=== PATIENT | female | born 1970 | race Caucasian/White ===

== ENCOUNTER 2016-07-12 06:27 | Inpatient (IN) | payer MEDICAID ==
[~2016-07-12] VITALS: Ht 137.2 cm; Wt 64.0 kg
[2016-07-12 07:13] LABS: CALCIUM 8.6 mg/dL (8.5-10.1); CARBON DIOXIDE 22.4 mmol/L (21-32); CHLORIDE SERUM 105 mmol/L (98-107); CREATININE SERUM 0.8 mg/dL (0.6-1.0); GFR1 > 60 mL/min; GLUCOSE SERUM 107 mg/dL (74-106); POTASSIUM SERUM 3.8 mmol/L (3.5-5.1); SODIUM SERUM 139 mmol/L (136-145)
[2016-07-12 07:15] LABS: BASOPHIL % 0.7 % (0-2); PLATELET COUNT 302 x10^3mcL (130-400); RED CELL DISTRIBUTION WIDTH 13.3 % (11.5-14.5)
[2016-07-12 07:17] LABS: ALBUMIN 3.6 g/dL (3.4-5.0); ALKALINE PHOSPHATASE 112 U/L (46-116); ALT/SGPT 19 U/L (14-59); AST/SGOT 13 U/L (15-37); BILIRUBIN TOTAL 0.3 mg/dL (0.20-1.00); LIPASE 147 IU/L (73-393); TOTAL PROTEIN, SERUM 7.8 g/dL (6.4-8.2)
[2016-07-12] MEDS ORDERED: RANITIDINE HCL150 M1 PO (08:17)
[2016-07-12 09:01] LABS: CHOLESTEROL/HDL RATIO 4.6
[2016-07-12 09:07] LABS: T3 TOTAL 1.25 ng/mL
[2016-07-12 09:17] LABS: FREE T4 1.03 ng/dL (0.76-1.46); FREE THYROXINE INDEX 2.6 ug/dL (1.4-4.5); T4(THYROXINE) 8.3 ug/dL (4.7-13.3)
[2016-07-12 10:03] VITALS: BP 103/66
[2016-07-12 10:05] VITALS: BP 116/78
[2016-07-12 14:29] VITALS: BP 99/55
[2016-07-12 17:44] VITALS: BP 98/65
[2016-07-12 19:17] LABS: microscopic required? NO
[2016-07-12 19:56] LABS: urine erythrocyte NEGATIVE (NEGATIVE)
[2016-07-12 20:12] LABS: AMPHETAMINE QUAL UR NONE DETECTED (NEG <=1000)
[2016-07-12 22:31] VITALS: BP 84/52
[2016-07-13 05:37] VITALS: BP 102/64
[2016-07-13 08:12] LABS: CALCIUM 8.1 mg/dL (8.5-10.1); CHLORIDE SERUM 106 mmol/L (98-107); CREATININE SERUM 0.9 mg/dL (0.6-1.0); GFR1 > 60 mL/min; GLUCOSE SERUM 99 mg/dL (74-106); MAGNESIUM 1.9 mg/dL (1.8-2.4); PHOSPHOROUS 3.5 mg/dL (2.5-4.9); POTASSIUM SERUM 3.9 mmol/L (3.5-5.1); SODIUM SERUM 138 mmol/L (136-145)
[2016-07-13 08:15] LABS: BASOPHIL % 0.5 % (0-2); PLATELET COUNT 249 x10^3mcL (130-400); RED CELL DISTRIBUTION WIDTH 13.9 % (11.5-14.5)
[2016-07-13 09:09] VITALS: BP 100/59
[2016-07-13 13:50] VITALS: BP 114/75
[2016-07-13 22:32] VITALS: BP 96/64
[2016-07-14 06:32] VITALS: BP 102/62
[2016-07-14 07:13] LABS: CALCIUM 8.2 mg/dL (8.5-10.1); CARBON DIOXIDE 24.5 mmol/L (21-32); CHLORIDE SERUM 104 mmol/L (98-107); CREATININE SERUM 0.9 mg/dL (0.6-1.0); GFR1 > 60 mL/min; GLUCOSE SERUM 92 mg/dL (74-106); MAGNESIUM 1.9 mg/dL (1.8-2.4); PHOSPHOROUS 3.5 mg/dL (2.5-4.9); SODIUM SERUM 137 mmol/L (136-145)
[2016-07-14 07:17] LABS: BASOPHIL % 0.5 % (0-2); PLATELET COUNT 265 x10^3mcL (130-400); RED CELL DISTRIBUTION WIDTH 13.5 % (11.5-14.5)
[2016-07-14 08:53] VITALS: BP 101/59
[2016-07-14 15:38] LABS: BILIRUBIN DIRECT 0.07 mg/dL (0.0-0.2); BILIRUBIN TOTAL 0.3 mg/dL (0.20-1.00); TOTAL PROTEIN, SERUM 6.8 g/dL (6.4-8.2)
[2016-07-14 15:40] LABS: ALBUMIN 3.1 g/dL (3.4-5.0)
[2016-07-14 18:01] VITALS: BP 115/70
[2016-07-14 19:50] VITALS: BP 115/73
[2016-07-14 21:07] VITALS: Ht 137.2 cm; Wt 64.0 kg
[2016-07-15 06:11] VITALS: BP 100/64
[2016-07-15 06:30] LABS: ALKALINE PHOSPHATASE 72 U/L (46-116); ALT/SGPT 28 U/L (14-59); AST/SGOT 54 U/L (15-37); BILIRUBIN TOTAL 0.5 mg/dL (0.20-1.00); CALCIUM 8.4 mg/dL (8.5-10.1); CARBON DIOXIDE 22.5 mmol/L (21-32); CHLORIDE SERUM 106 mmol/L (98-107); CREATININE SERUM 0.7 mg/dL (0.6-1.0); GFR1 > 60 mL/min; GLUCOSE SERUM 112 mg/dL (74-106); POTASSIUM SERUM 3.5 mmol/L (3.5-5.1); SODIUM SERUM 137 mmol/L (136-145); TOTAL PROTEIN, SERUM 6.7 g/dL (6.4-8.2)
[2016-07-15 06:32] LABS: BASOPHIL % 0.2 % (0-2); PLATELET COUNT 258 x10^3mcL (130-400); RED CELL DISTRIBUTION WIDTH 13.2 % (11.5-14.5)
[2016-07-15 09:08] VITALS: BP 108/67
[2016-07-15 13:27] VITALS: BP 110/70
[2016-07-15 17:07] VITALS: BP 105/69
[2016-07-15 21:46] VITALS: BP 105/76
[2016-07-16 05:55] VITALS: BP 100/65
[2016-07-16 06:27] LABS: BASOPHIL % 0.4 % (0-2); PLATELET COUNT 224 x10^3mcL (130-400); RED CELL DISTRIBUTION WIDTH 13.6 % (11.5-14.5)
[2016-07-16 06:54] LABS: CALCIUM 8.1 mg/dL (8.5-10.1); CHLORIDE SERUM 107 mmol/L (98-107); CREATININE SERUM 0.8 mg/dL (0.6-1.0); GFR1 > 60 mL/min; GLUCOSE SERUM 92 mg/dL (74-106); MAGNESIUM 1.9 mg/dL (1.8-2.4); PHOSPHOROUS 3.1 mg/dL (2.5-4.9); POTASSIUM SERUM 3.9 mmol/L (3.5-5.1); SODIUM SERUM 139 mmol/L (136-145)
[2016-07-16 09:27] VITALS: BP 105/69
[2016-07-16] MEDS ORDERED: APAP/HYDROCODON1 T13 PO (10:25)
[2016-07-16] MEDS ORDERED: COL100 PO (10:30)
[2016-07-16] MEDS ORDERED: GAS RELIEF80 MG CH ×2 (10:30→10:39)
[2016-07-16 13:20] VITALS: BP 105/72
== END 2016-07-16 13:55 | disposition home or self-care (01) | DRG 263 ==
LOC: ED 06:27 → MU 08:01 → DU 08:01 → MU 07-15 16:59
PROVIDERS: Emergency Medicine; Family Medicine; Surgery; ADMIT Family Medicine
PROC: 8E0W4CZ Robotic Assisted Procedure of Trunk Region, Percutaneous Endoscopic Approach (ICD-10-PCS; 2016-07-14)
PROC: 0FT44ZZ Resection of Gallbladder, Percutaneous Endoscopic Approach (ICD-10-PCS; principal; 2016-07-14 12:00)
DX: K80.10 Calculus of gallbladder with chronic cholecystitis without obstruction (principal); E44.0 Moderate protein-calorie malnutrition; E78.1 Pure hyperglyceridemia; E78.5 Hyperlipidemia, unspecified; E66.9 Obesity, unspecified; Z68.34 Body mass index [BMI] 34.0-34.9, adult
CPT/HCPCS: 80307; 83880; 84439; 94150; J0295; J0330; J1644; J1885; J2175; J2250; J2405; J2704; J2710; J3010; J3490; J7030; J7120; Q0092; Q0162

== ENCOUNTER 2016-07-21 08:40 | Emergency (ER) | payer MEDICAID ==
[~2016-07-21 08:40] MED LIST: APAP/HYDROCODON1 T13 PO; COL100 PO; GAS RELIEF80 MG CH; RANITIDINE HCL150 M1 PO
[2016-07-21 11:13] VITALS: BP 106/72
== END 2016-07-21 11:13 | disposition home or self-care (01) ==
LOC: ED 08:40
DX: R42 Dizziness and giddiness (principal); R11.0 Nausea; Z90.49 Acquired absence of other specified parts of digestive tract

== ENCOUNTER 2017-09-26 20:41 | Emergency (ER) | payer MEDICAID ==
[~2017-09-26] VITALS: Ht 157.5 cm; Wt 66.2 kg
[2017-09-26 20:43] VITALS: Ht 157.5 cm; Wt 66.2 kg
[2017-09-26 22:45] VITALS: BP 120/78
== END 2017-09-26 22:45 | disposition home or self-care (01) ==
LOC: ED 20:41
DX: B34.9 Viral infection, unspecified (principal)
CPT/HCPCS: Q0092

== ENCOUNTER 2018-11-12 23:26 | Emergency (ER) | payer MEDICAID ==
[~2018-11-12] VITALS: Ht 160 cm; Wt 67.1 kg
[2018-11-12 23:28] VITALS: Ht 160 cm; Wt 67.1 kg
[2018-11-13 00:04] LABS: BASOPHIL % 0.6 % (0-2); PLATELET COUNT 278 x10^3mcL (130-400); RED CELL DISTRIBUTION WIDTH 12.9 % (11.5-14.5)
[2018-11-13 00:06] LABS: CALCIUM 8.5 mg/dL (8.5-10.1); CARBON DIOXIDE 23.7 mmol/L (21-32); CHLORIDE SERUM 106 mmol/L (98-107); CREATININE SERUM 0.8 mg/dL (0.6-1.0); GFR1 > 60 mL/min; GLUCOSE SERUM 103 mg/dL (74-106); POTASSIUM SERUM 3.4 mmol/L (3.5-5.1); SODIUM SERUM 142 mmol/L (136-145)
[2018-11-13 00:11] LABS: ALBUMIN 3.3 g/dL (3.4-5.0); ALKALINE PHOSPHATASE 81 U/L (46-116); ALT/SGPT 23 U/L (14-59); AST/SGOT 3 U/L (15-37); BILIRUBIN TOTAL 0.3 mg/dL (0.20-1.00); LIPASE 384 IU/L (73-393); TOTAL PROTEIN, SERUM 7.2 g/dL (6.4-8.2)
[2018-11-13 00:55] VITALS: BP 108/50
== END 2018-11-13 00:55 | disposition home or self-care (01) ==
LOC: ED 23:26
PROVIDERS: Emergency Medicine
DX: K21.9 Gastro-esophageal reflux disease without esophagitis (principal); Z98.890 Other specified postprocedural states
CPT/HCPCS: 36415

== ENCOUNTER 2019-03-08 07:28 | Emergency (ER) | payer MEDICAID ==
[~2019-03-08] VITALS: Ht 162.6 cm; Wt 66.2 kg
[2019-03-08 07:31] VITALS: Ht 162.6 cm; Wt 66.2 kg
[2019-03-08 10:29] VITALS: BP 113/75
== END 2019-03-08 10:15 | disposition home or self-care (01) ==
LOC: ED 07:28
DX: R51 Headache (principal); R20.2 Paresthesia of skin